=== PATIENT | male | born 1985 | race Caucasian/White ===

== ENCOUNTER 2016-12-26 05:14 | Emergency (ER) | payer OTHER ==
[~2016-12-26] VITALS: Ht 185.4 cm; Wt 108.9 kg
[2016-12-26] MEDS ORDERED: Motrin,Rufen800 MG PO (06:06)
[2016-12-26] MEDS ORDERED: KEFLEX500 M1 PO (06:06)
== END 2016-12-26 06:54 | disposition home or self-care (01) ==
LOC: ED 05:14
DX: S91.331A Puncture wound without foreign body, right foot, initial encounter (principal); W45.0XXA Nail entering through skin, initial encounter; Y93.01 Activity, walking, marching and hiking; Y92.096 Garden or yard of other non-institutional residence as the place of occurrence of the external cause; Y99.8 Other external cause status